=== PATIENT | male | born 1985 | race Caucasian/White ===

== ENCOUNTER 2017-03-06 12:04 | Emergency (ER) | payer OTHER ==
[~2017-03-06] VITALS: Ht 185.4 cm; Wt 75.0 kg
[~2017-03-06 12:04] MED LIST: PRILOSEC10 MG PO
[2017-03-06 12:06] VITALS: BP 135/72; PULSE 61; TEMP 97.7
[2017-03-06] MEDS ORDERED: DOXYCYCLINE 10100 MG PO (12:43)
== END 2017-03-06 12:48 | disposition home or self-care (01) ==
LOC: COL.ER 12:04
DX: S30.860A Insect bite (nonvenomous) of lower back and pelvis, initial encounter (principal)